=== PATIENT | female | born 1980 | race Caucasian/White ===

== ENCOUNTER 2021-01-26 14:06 | Emergency (ER) | payer OTHER ==
[~2021-01-26 14:06] MED LIST: NAPROXEN500 MG PO
[2021-01-26] MEDS ORDERED: ETODOLAC500 MG PO (15:35)
== END 2021-01-26 15:50 | disposition home or self-care (01) ==
LOC: FER 14:06
DX: S93.692A Other sprain of left foot, initial encounter (principal); Z88.0 Allergy status to penicillin; W17.2XXA Fall into hole, initial encounter; Y92.009 Unspecified place in unspecified non-institutional (private) residence as the place of occurrence of the external cause
CPT/HCPCS: 73630